=== PATIENT | male | born 1995 | race Caucasian/White ===

== ENCOUNTER 2022-09-18 21:49 | Emergency (ER) | payer SELFPAY ==
[2022-09-18] MEDS ORDERED: predniSONE 20 MG TAB ONE (22:08)
[2022-09-18] MEDS ORDERED: DIPHENHYDRAMINE 50 MG/ML VIAL ONE ×2 (22:08→22:10)
[2022-09-18] MEDS ORDERED: METHYLPREDNISOLONE 125 MG INJ ONE (22:08)
[2022-09-18] MEDS ORDERED: EPINEPHRINE/PF 1 MG/ML AMP ONE (22:08)
[2022-09-18] MEDS ORDERED: FAMOTIDINE 20 MG/2 ML VIAL IV ONE (22:09)
[2022-09-18] MEDS ORDERED: NA CHLORIDE 0.9% 1,000 ML ONE (22:09)
[2022-09-18] MEDS ORDERED: ALBUTEROL 2.5 MG/3 ML NEB SOL ONE (22:10)
[2022-09-18] MEDS ORDERED: IPRATROPIUM BROM 0.5MG/2.5ML ONE (22:10)
[2022-09-18 22:15] LABS: Absolute Lymphocytes (CBC) 2.6 K/uL (0.7-4.9); Hematocrit 50.1 % (39.6-49.0); Lymphocytes % 24.1 % (15.3-44.8); MCV 88.3 fL (80-100); MPV 8.4 fL (7.6-11.3); RBC Red Blood Cell Count 5.67 M/uL (4.33-5.43)
[2022-09-18] MEDS ORDERED: ONDANSETRON 4 MG/2 ML VIAL ONE (22:29)
[2022-09-18 22:34] LABS: Albumin 4.2 g/dL (3.4-5.0); Bilirubin Total 0.5 mg/dL (0.2-1.0); Potassium 3.5 mEq/L (3.5-5.1); Protein, Total 7.9 g/dL (6.4-8.2)
--- NOTE | 2022-09-18 22:36 | RAD REPORT ---
EXAM DESCRIPTION: [place] Single View09/18/2022 10:18 pm CLINICAL HISTORY: Cough COMPARISON: none FINDINGS: The lungs appear clear of acute infiltrate. The heart is normal size IMPRESSION: No acute abnormalities displayed
--- NOTE | 2022-09-18 23:07 | ER ---
Nurse's Notes [facility] [place] Name: Eliot Arita Age: 27 yrs Sex: Male : 1995 Arrival Date: 09/18/2022 Time: 21:49 Bed 6 Private MD: Diagnosis: Urticaria, unspecified;Personal history of anaphylaxis;Insect allergy status;Angioneurotic edema Presentation: 09/18 21:52 Chief complaint: Parent and/or Guardian states: He got bit by some ants and is now kd3 having some hives and chest pain with some difficulty breathing. He got 3 tablets of 25 mg of Benadryl. Coronavirus screen: Vaccine status: Patient reports being unvaccinated. Ebola Screen: No symptoms or risks identified at this time. Initial Sepsis Screen: Does the patient meet any 2 criteria? No. Patient's initial sepsis screen is negative. Does the patient have a suspected source of infection? No. Patient's initial sepsis screen is negative. Risk Assessment: Do you want to hurt yourself or someone else? Patient reports no desire to harm self or others. Onset of symptoms was September 18, 2022. 21:52 Method Of Arrival: Ambulatory kd3 21:52 Acuity: CHRISTINA 2 kd3 Triage Assessment: 21:58 General: Appears distressed, uncomfortable, Behavior is calm, cooperative. Pain: kd3 Complains of pain in chest. Respiratory: Reports shortness of breath Onset: The symptoms/episode began/occurred suddenly, the patient has severe shortness of breath. Historical: - Allergies: 21:58 No Known Allergies; kd3 - Immunization history:: Adult Immunizations up to date. - Social history:: Smoking status: Patient denies any tobacco usage or history of. Screenin:16 [facility] ED Fall Risk Assessment (Adult) History of falling in the last 3 months, rv including since admission No falls in past 3 months (0 pts) Confusion or Disorientation No (0 pts) Intoxicated or Sedated No (0 pts) Impaired Gait No (0 pts) Mobility Assist Device Used No (0 pt) Altered Elimination No (0 pt) Score/Fall Risk Level 0 - 2 = Low Risk Oriented to surroundings, Maintained a safe environment, Educated pt \T\ family on fall prevention, incl call for assistance when getting out of bed, Assessed \T\ reinforced patient's understanding of fall precautions, Provided non-skid footwear, Hourly rounding (assess needs \T\ fall precautionary measures) done, Used ambulatory aids as needed (educated on \T\ assisted with), Used gait belt as appropriate. Abuse screen: Denies threats or abuse. Denies injuries from another. Nutritional screening: No deficits noted. Tuberculosis screening: No symptoms or risk factors identified. Assessment: 22:14 General: Appears uncomfortable, Behavior is calm, cooperative. Pain: Complains of pain rv in chest. Neuro: Level of Consciousness is awake, alert, obeys commands, Oriented to person, place, time, situation. Cardiovascular: Capillary refill < 3 seconds Rhythm is regular. Respiratory: Reports THROAT SPASM Airway is patent Respiratory effort is even, unlabored, Breath sounds are clear bilaterally. GI: Abdomen is round non-distended. Derm: Rash noted that is on EXTREMITIES AND FACE. 23:36 Reassessment: SWELLING AND RASH IMPROVED SIGNIFICANTLY. DENIES THROAT SWELLING. AIRWAY rv NOT OBSTRUCTED. Respiratory: Airway is patent Respiratory effort is even, unlabored. Vital Signs: 21:52 BP 143 / 104; Pulse 108; Resp 23; Pulse Ox 100% on R/A; Weight 104.33 kg; kd3 22:16 BP 121 / 101; Pulse 80; Resp 12; Pulse Ox 100% on Nebulizer Mask; rv 23:35 BP 120 / 66; Pulse 69; Resp 16; Temp 98; Pulse Ox 99% on R/A; rv [place] Coma Score: 23:35 Eye Response: spontaneous(4). Motor Response: obeys commands(6). Verbal Response: rv oriented(5). Total: 15. ED Course: 21:50 Patient arrived in ED. ja2 21:58 Triage completed. kd3 21:58 Arm band placed on right wrist. EKG completed in triage. Results shown to MD. kd3 21:59 Vishnu Lynn MD is Attending Physician. kenneth 22:00 No provider procedures requiring assistance completed. Inserted saline lock: 20 gauge rv in left antecubital area, using aseptic technique. Blood collected. 22:07 Comprehensive Metabolic Panel Sent. as6 22:07 CBC with Diff Sent. as6 22:13 Joel Lu, KELSEY is Primary Nurse. rv 22:17 Patient has correct armband on for positive identification. Bed in low position. Call rv light in reach. Side rails up X 1. Adult w/ patient. Client placed on continuous cardiac and pulse oximetry monitoring. NIBP monitoring applied. child and adolescent therapist on. 22:20 Chest Single View XRAY In Process Unspecified. EDMS 23:06 Uirel Trinh MD is Referral Physician. kenneth 23:40 IV discontinued, intact, bleeding controlled, No redness/swelling at site. Pressure rv dressing applied. Administered Medications: 22:00 Drug: NS 0.9% IV 1000 ml Route: IV; Rate: 1 bolus; Site: left antecubital; rv 23:38 Follow up: IV Status: Completed infusion; IV Intake: 1000ml rv 23:39 Follow up: Response: No adverse reaction; Marked relief of symptoms rv 22:00 Drug: diphenhydrAMINE IVP 75 mg Route: IVP; Site: left antecubital; rv 23:37 Follow up: Response: No adverse reaction; Marked relief of symptoms rv 22:01 Drug: Famotidine IVP 40 mg Route: IVP; Site: left antecubital; rv 23:38 Follow up: Response: No adverse reaction; Marked relief of symptoms rv 22:03 Drug: MethylPrednisoLONE IVP 125 mg Route: IVP; Site: left antecubital; rv 23:38 Follow up: Response: No adverse reaction; Marked relief of symptoms rv 22:04 Drug: DuoNeb Nebulize (2.5 mg - 0.5 mg) 3 ml Route: Nebulizer; as6 23:38 Follow up: Response: No adverse reaction; Marked relief of symptoms rv 22:14 Drug: EPINEPHrine 1:1000 Sub-Q 1:1,000 0.3 ml Route: Sub-Q; Site: abdomen; rv 23:38 Follow up: Response: No adverse reaction; Marked relief of symptoms rv 22:24 Drug: Ondansetron IVP 4 mg Route: IVP; Site: left antecubital; rv 23:39 Follow up: Response: No adverse reaction; Marked relief of symptoms rv 22:25 Drug: predniSONE PO 60 mg Route: PO; rv 23:38 Follow up: Response: No adverse reaction; Marked relief of symptoms rv 23:39 Drug: Singulair 10 mg Route: PO; rv 23:39 Follow up: Response: Medication administered at discharge. rv 23:43 Follow up: Response: Medication administered at discharge. ll3 Medication: 22:17 VIS not applicable for this client. rv Intake: 23:38 IV: 1000ml; Total: 1000ml. rv Outcome: 23:06 Discharge ordered by . kenneth 23:40 Discharged to home ambulatory, with family. rv 23:40 Condition: improved 23:40 Discharge instructions given to patient, Instructed on discharge instructions, follow up and referral plans. medication usage, Demonstrated understanding of instructions, follow-up care, medications, Prescriptions given X 5 23:44 Patient left the ED. ll3 Signatures: Dispatcher [employer] EDMS Vishnu Lynn MD MD cha Vicente, Ronaldo, RN RN rv Anna Osei Ashby, RN RN as6 Jean Harvey RN RN ll3 Poonam Carmona, RN RN kd3
--- NOTE | 2022-09-18 23:07 | EDPHYS ---
Physician Documentation [facility] Name: Eliot Arita Age: 27 yrs Sex: Male : 1995 Arrival Date: 09/18/2022 Time: 21:49 Bed 6 Private MD: ED Physician Vishnu Lynn HPI: 09/18 22:18 This 27 yrs old Male presents to ER via Ambulatory with complaints of kenneth Shortness Of Breath, Chest Pain, Ant bites. 22:18 The patient has shortness of breath at rest, with light activity. Onset: The kenneth symptoms/episode began/occurred 1 hour(s) ago. Duration: The symptoms are continuous, and are steadily getting worse. The patient's shortness of breath has no apparent modifying factors. Associated signs and symptoms: Pertinent positives: non-productive cough, dizziness. Severity of symptoms: At their worst the symptoms were moderate in the emergency department the symptoms are unchanged. The patient has not experienced similar symptoms in the past. Historical: - Allergies: 21:58 No Known Allergies; kd3 - Immunization history:: Adult Immunizations up to date. - Social history:: Smoking status: Patient denies any tobacco usage or history of. ROS: 22:20 Constitutional: Negative for fever, chills, and weight loss, Eyes: Negative for injury, kenneth pain, redness, and discharge, Neck: Negative for injury, pain, and swelling, Cardiovascular: Negative for chest pain, palpitations, and edema, Abdomen/GI: Negative for abdominal pain, nausea, vomiting, diarrhea, and constipation, Back: Negative for injury and pain, : Negative for injury, bleeding, discharge, and swelling, MS/Extremity: Negative for injury and deformity, Neuro: Negative for headache, weakness, numbness, tingling, and seizure, Psych: Negative for depression, anxiety, suicide ideation, homicidal ideation, and hallucinations, Endocrine: Negative for neck swelling, polydipsia, polyuria, polyphagia, and marked weight changes, Hematologic/Lymphatic: Negative for swollen nodes, abnormal bleeding, and unusual bruising. 22:20 ENT: Positive for difficulty swallowing. 22:20 Respiratory: Positive for cough, shortness of breath. 22:20 Skin: Positive for rash. Exam: 22:20 Constitutional: This is a well developed, well nourished patient who is awake, alert, kenneth and in no acute distress. Head/Face: Normocephalic, atraumatic. Eyes: Pupils equal round and reactive to light, extra-ocular motions intact. Lids and lashes normal. Conjunctiva and sclera are non-icteric and not injected. Cornea within normal limits. Periorbital areas with no swelling, redness, or edema. ENT: Nares patent. No nasal discharge, no septal abnormalities noted. Tympanic membranes are normal and external auditory canals are clear. Oropharynx with no redness, swelling, or masses, exudates, or evidence of obstruction, uvula midline. Mucous membranes moist. Neck: Trachea midline, no thyromegaly or masses palpated, and no cervical lymphadenopathy. Supple, full range of motion without nuchal rigidity, or vertebral point tenderness. No Meningismus. Chest/axilla: Normal chest wall appearance and motion. Nontender with no deformity. No lesions are appreciated. Cardiovascular: Regular rate and rhythm with a normal S1 and S2. No gallops, murmurs, or rubs. Normal PMI, no JVD. No pulse deficits. Respiratory: Lungs have equal breath sounds bilaterally, clear to auscultation and percussion. No rales, rhonchi or wheezes noted. No increased work of breathing, no retractions or nasal flaring. Abdomen/GI: Soft, non-tender, with normal bowel sounds. No distension or tympany. No guarding or rebound. No evidence of tenderness throughout. Back: No spinal tenderness. No costovertebral tenderness. Full range of motion. Male : Normal genitalia with no discharge or lesions. Neuro: Awake and alert, GCS 15, oriented to person, place, time, and situation. Cranial nerves II-XII grossly intact. Motor strength 5/5 in all extremities. Sensory grossly intact. Cerebellar exam normal. Normal gait. Psych: Awake, alert, with orientation to person, place and time. Behavior, mood, and affect are within normal limits. 22:20 Skin: Appearance: Color: erythematous, Temperature: normal temperature, Moisture: normal moisture, petechiae, not noted, ecchymosis, not noted, flushing, noted on the face, abscess, not appreciated, cellulitis, is not appreciated, induration, is not appreciated. 22:24 ENT: Mouth: no acute changes, Lips: normal, Oral mucosa: normal, pink and intact, kenneth moist, Gums: normal with healthy appearance, Tongue: is normal, Posterior pharynx: is normal, airway is patent, no erythema, no exudate, no peritonsilar mass, no pooling of secretions, no swelling, normal tonsil apperance, normal sized tonsils, normal uvula appearance, normal uvula size, no acute changes, Airway: normal, no evidence of obstruction, Tonsils: are normal in appearance, Uvula: normal, midline, non-edematous, no erythema. 22:37 ECG was reviewed by the Attending Physician. [facility] Vital Signs: 21:52 BP 143 / 104; Pulse 108; Resp 23; Pulse Ox 100% on R/A; Weight 104.33 kg; kd3 22:16 BP 121 / 101; Pulse 80; Resp 12; Pulse Ox 100% on Nebulizer Mask; rv 23:35 BP 120 / 66; Pulse 69; Resp 16; Temp 98; Pulse Ox 99% on R/A; rv [place] Coma Score: 23:35 Eye Response: spontaneous(4). Motor Response: obeys commands(6). Verbal Response: rv oriented(5). Total: 15. MDM: 22:[address] [facility] 22:22 Differential diagnosis: angioedema, Anxiety Reaction asthma, Bronchitis Mastocystosis kenneth Status Asthmaticus pulmonary edema, reactive airway disease. Antibiotic administration: Not indicated. Immunization status:. Data reviewed: vital signs, nurses notes, lab test result(s), EKG, radiologic studies, plain films. Consideration of Admission/Observation Escalation of care including admission/observation considered. I considered the following discharge prescriptions or medication management in the emergency department Medications were administered in the Emergency Department. See MAR. Test considered but Not performed: CT: no ct. Historians other than the Patient: Spouse/Significant Other: . Care significantly affected by the following chronic conditions: none. 09/18 22: Order name: CBC with Diff; Complete Time: 23:05 [facility] 09/18 22: Order name: Comprehensive Metabolic Panel; Complete Time: 23:05 [facility] 09/18 22: Order name: Chest Single View XRAY; Complete Time: 23:05 [facility] 09/18 22: Order name: EKG; Complete Time: 22:02 [facility] 09/18 22: Order name: EKG - Nurse/Tech; Complete Time: 22:07 kenneth EC:37 Rate is 99 beats/min. Rhythm is regular. QRS Bruce is Normal. AR interval is normal. QRS kenneth interval is normal. QT interval is normal. No Q waves. T waves are Normal. No ST changes noted. Clinical impression: NSR w/ Non-specific ST/T Changes and No evidence of ischemia. Interpreted by me. Reviewed by me. Administered Medications: 22:00 Drug: NS 0.9% IV 1000 ml Route: IV; Rate: 1 bolus; Site: left antecubital; rv 23:38 Follow up: IV Status: Completed infusion; IV Intake: 1000ml rv 23:39 Follow up: Response: No adverse reaction; Marked relief of symptoms rv 22:00 Drug: diphenhydrAMINE IVP 75 mg Route: IVP; Site: left antecubital; rv 23:37 Follow up: Response: No adverse reaction; Marked relief of symptoms rv 22:01 Drug: Famotidine IVP 40 mg Route: IVP; Site: left antecubital; rv 23:38 Follow up: Response: No adverse reaction; Marked relief of symptoms rv 22:03 Drug: MethylPrednisoLONE IVP 125 mg Route: IVP; Site: left antecubital; rv 23:38 Follow up: Response: No adverse reaction; Marked relief of symptoms rv 22:04 Drug: DuoNeb Nebulize (2.5 mg - 0.5 mg) 3 ml Route: Nebulizer; as6 23:38 Follow up: Response: No adverse reaction; Marked relief of symptoms rv 22:14 Drug: EPINEPHrine 1:1000 Sub-Q 1:1,000 0.3 ml Route: Sub-Q; Site: abdomen; rv 23:38 Follow up: Response: No adverse reaction; Marked relief of symptoms rv 22:24 Drug: Ondansetron IVP 4 mg Route: IVP; Site: left antecubital; rv 23:39 Follow up: Response: No adverse reaction; Marked relief of symptoms rv 22:25 Drug: predniSONE PO 60 mg Route: PO; rv 23:38 Follow up: Response: No adverse reaction; Marked relief of symptoms rv 23:39 Drug: Singulair 10 mg Route: PO; rv 23:39 Follow up: Response: Medication administered at discharge. rv 23:43 Follow up: Response: Medication administered at discharge. ll3 Disposition Summary: 09/18/22 23:06 Discharge Ordered Location: Home [facility] Problem: [facility] Symptoms: have improved kenneth Condition: Stable kenneth Diagnosis - Urticaria, unspecified kenneth - Personal history of anaphylaxis [facility] - Insect allergy status [facility] - Angioneurotic edema kenneth Followup: [facility] - With: Private Physician - When: 1 - 2 days - Reason: Recheck today's complaints, Continuance of care, Re-evaluation by your physician Followup: kenneth - With: - When: 2 - 3 days - Reason: Recheck today's complaints, Re-evaluation by your physician Discharge Instructions: - Discharge Summary Sheet [facility] - Anaphylactic Reaction, Adult kenneth - Hives kenneth - Angioedema [facility] - Rash, Adult, [id number] kenneth - Hives, [id number] [facility] Forms: - Medication Reconciliation Form [facility] - Thank You Letter [facility] - Antibiotic Education [facility] - Prescription Opioid Use [facility] - [email or web address] [facility] Prescriptions: - EpiPen 0.3 mg/0.3 mL Injection Auto-Injector - administer 0.3 milliliter by INTRAMUSCULAR route once; 2 pen; Refills: 0, [facility] Product Selection Permitted - Benadryl 25 mg Oral Capsule - take 2 capsule by ORAL route every 6 hours As needed; 20 tablet; Refills: 0, [facility] Product Selection Permitted - Pepcid 20 mg Oral Tablet - take 1 tablet by ORAL route every 12 hours for 21 days; 42 tablet; Refills: 0, [facility] Product Selection Permitted - Prednisone 20 mg Oral Tablet - take 3 tablets by ORAL route once daily for 5 days; 15 tablet; Refills: 0, [facility] Product Selection Permitted - Singulair 10 mg Oral Tablet - take 1 tablet by ORAL route At bedtime; 20 tablet; Refills: 0, Product [facility] Selection Permitted Signatures: Dispatcher [employer] Vishnu Chandler MD MD cha Vicente, Ronaldo RN RN Edgar Murphy RN RN as6 Poonam Carmona RN RN john3 Jean Harvey RN ll3
[2022-09-18] MEDS ORDERED: MONTELUKAST 10 MG TAB ONE (23:37)
[2022-09-18 23:52] VITALS: BP 120/66; TEMP 98; O2SAT 99
--- NOTE | 2022-09-19 19:30 | EKG ---
Test Date: 2022-09-18 Test Time: 21:55:15 Irrigation Supervisor: JESSICA MEASUREMENT RESULTS: Intervals: Rate: 99 ND: 126 QRSD: 96 QT: 338 QTc: 433 [place]: P: 69 ND: 126 QRS: 86 T: 8 INTERPRETIVE STATEMENTS: Normal sinus rhythm with sinus arrhythmia Normal ECG No previous ECG available for comparison Electronically Signed On 09-19-22 19:28:36 CDT by Haris Strickland
== END 2022-09-18 23:44 | disposition home or self-care (01) ==
LOC: ER 21:49
DX: T78.3XXA Angioneurotic edema, initial encounter (principal); Z91.038 Other insect allergy status
CPT/HCPCS: 36415; 71045; 80053; 85025; 93005; 94640; 96361; 96372; 96374; 96375; 99285; J0171; J1200; J2405; J2930; J7030; J7512; J7613; J7644